=== PATIENT | female | born 1980 | race Caucasian/White ===

== ENCOUNTER 2023-06-14 07:00 | Inpatient (IN) | payer SELFPAY ==
[2023-06-14] VITALS (18 sets, daily range): BP systolic 110–148; BP diastolic 57–81; PULSE 67–85; RESP 14–16; TEMP 36.4–37; O2SAT 93–96; BMI 29.2
[2023-06-14] MEDS: Lactated Ringers 1,000 ML 50 ML IV (08:35)
[2023-06-14] MEDS: Oxytocin 15 Units/NS 250ml 15 UNITS/250 ML IV.SOLN 2 UNITS IV (08:55)
[2023-06-14 08:56] LABS: Absolute Lymphocyte Count 1.24 X10^3/uL (0.83-4.51); Absolute Neutrophil Count 2.9 X10^3/uL (2.0-7.7); Basophil# 0.02 X10^3/uL; Basophil% 0.4 % (0-1); Eosinophil# 0.01 X10^3/uL; Eosinophils% 0.2 % (0-5); Hematocrit 39.5 % (37-47); Hemoglobin 13.2 g/dL (12.0-15.0); Lymphocyte # 1.24 X10^3/ul (0.83-4.51); Lymphocyte % 27.6 % (19-41); Mean Corp Hgb Conc 33.4 g/dL (32-36); Mean Corpuscular Hgb 28.8 pg (27.0-32.0); Mean Corpuscular Volume 86.2 fL (81-99); Mean Platelet Vol. 10.4 fl (6.2-12.0); Monocyte# 0.34 X10^3/uL; Monocyte% 7.6 % (0-10); NRBC Flagged by Analyzer 0 % (0-5); Neutrophil # 2.87 X10^3/uL (2.7-7.7); Neutrophil % 63.8 % (47-70); Platelet Count 205 K/mm3 (150-450); Red Blood Count 4.58 M/mm3 (4.2-5.4); White Blood Count 4.5 K/mm3 (4.4-11.0)
[2023-06-14 09:26] LABS: Syphilis Antibodies Non-reactive
[2023-06-14 09:31] LABS: Bedside Glucose 82 mg/dL (74-106)
[2023-06-14] MEDS: Penicillin G 3,000,000 Units 50 ML 100 UNITS IV (12:55)
[2023-06-14 13:06] LABS: Bedside Glucose 67 mg/dL (74-106)
--- NOTE | 2023-06-14 13:21 | PCM.HP.OB ---
HPI - General General Date of Admission: 06/14/23 Date of Service: 06/14/23 Chief Complaint: induction of labor HPI Narrative SYED GUZMAN, is a 42 F 019 presents at Maternal Data Information Final AZAM: 06/18/23 Gestational age: 39 3/7 PFSH PFS Medical History (Updated 06/14/23 @ 13:[address] Cat Combs MD) DVT (deep venous thrombosis) Gestational diabetes Hepatitis Superficial varicosities Home Medications vit no.95-ferrous fumarate 28 mg-folic acid 800 mcg tablet () 1 tab PO DAILY 06/14/23 [History Last Taken 06/13/23] Allergy/AdvReac Type Severity Reaction Status Date / Time No Known Allergies Allergy Verified 06/14/23 07:40 Surgical History (Updated 06/14/23 @ 09:51 by Tamie Spangler) History of surgery Previous section Social History Smoking Status: Never smoker History Elective abortions Hx Para 9 Spontaneous abortions Hx # Term Pregnancies Ectopic pregnancies Hx # Pregnancies Multiple births # of living children ROS Constitutional Constitutional: Denies fatigue, fever(s) or malaise Eyes Eyes: Denies change in vision ENT HEENT: Denies dizziness or headache(s) Cardiovascular Cardiovascular: Denies chest pain, dyspnea or lightheadedness Respiratory/Chest Respiratory/Chest: Denies cough or dyspnea Gastrointestinal Gastrointestinal: Denies change in bowel habits Genitourinary Genitourinary: Denies burning urination or genital lesions Integumentary Integumentary: Denies rash Neurologic Neurologic: Denies confusion, dizziness, headache(s), numbness or weakness Vital Signs Vital Signs Vital Signs: 06/14/23 07:37 06/14/23 07:37 06/14/23 13:03 Temperature Temperature Source Temporal Pulse Rate 82 Blood Pressure 135/81 H BP Systolic 135 BP Diastolic 81 06/14/23 13:03 Temperature 97.6 F L Temperature Source Pulse Rate Blood Pressure BP Systolic BP Diastolic Weight Weight: 77.2 kg Body Mass Index (BMI) 29.2 Physical Exam Const alert General Appearance: cooperative HEENT normocephalic Resp normal respiratory effort Cardio regular rate GI soft to palpation GI Narrative: soft, moderate distention, fundus firm, appropriately tender. Abdominal bandage clean dry and intact Extremity no calf tenderness General Extremity: edema Skin no wounds Rashes: No rashes noted Psych activity/motor behavior normal Labs Labs Labs: Blood Type A POSITIVE Antibody Screen NEGATIVE Hct 39.5 % (37-47) Hgb 13.2 g/dL (12.0-15.0) Syphilis Total Ab Non-reactive Assessment & Plan (1) Advanced maternal age (AMA), 40 years or greater: PLAN: 50-year-old grand multiparity patient with previous section presents for induction of labor due to age greater than 40. Risk benefits alternatives to induction of labor discussed with the patient, questions were answered to her satisfaction she desires to proceed. We discussed option of epidural, she declines this. Estimated weight is less than 4000 g clinically and pelvis is clinically adequate to expect vaginal delivery. Proceed with Pitocin and artificial rupture of membrane induction. She has a history of a saphenous vein thrombosis. It was not a DVT but it was anticoagulated. This was after her . She has not had any issues after her vaginal deliveries. She did have superficial thrombophlebitis during the . She had a vascular consult during the . She has been wearing compression stockings during the . There is not a strong recommendation to anticoagulate the patient postdelivery. I discussed with the patient after delivery as it would be reasonable to put her on prophylactic doses of Lovenox. If she declines this would at least recommend aspirin 325 mg daily. (2) Failed trial of labor following previous , antepartum: (3) Grand multipara in labor in third trimester: (4) 39 weeks gestation of : (5) GDM, class A1:
[2023-06-14 13:30] LABS: Bedside Glucose 85 mg/dL (74-106)
--- NOTE | 2023-06-14 13:56 | EX.PCM.OBRPT ---
Assessment & Plan (1) 39 weeks gestation of : (2) GDM, class A1: (3) Grand multipara in labor in third trimester: (4) Advanced maternal age (AMA), 40 years or greater: (5) (vaginal after ): Maternal Data Information Final AZAM: 06/18/23 Gestational age: 39 3/7 Vaginal Delivery Maternal Presentation Maternal Presentation: Medically Indicated Induction Type of Induction: Pitocin and Amniotomy Medical Reason for Induction: - (advanced maternal age) Operative Information Date of Procedure: 06/14/23 Pre-Operative Diagnosis: labor Post-Operative Diagnosis: same Surgery / Procedure Performed: Type of Anesthesia: None Special Medications: none Drain: Coyne to straight drain Estimated Blood Loss: 200 Time of Delivery: 13:47 Findings Description of Procedure: A vigorous female infant was delivered CYNDY over an intact perineum. The remainder the was delivered with maternal pushing and gentle traction only in less than 15 seconds. The Pitocin infusion was initiated for active management of the third stage. The cord was clamped and cut after cord pulsations ceased. The infant was attended to by the waiting nursing staff. The placenta was delivered spontaneously and intact. The cervix and vagina were intact. Sponge and needle counts were correct. A vaginal sweep was completed by me. Presentation: CYNDY Amniotic Membrane Rupture Type: Artificial Amniotic Fluid Description: Clear Placental Delivery Description: Spontaneous Placenta Disposition: [facility] Cord Vessel Description: 3 Vessels Cord Entanglement: None Infant A Gender: Female (Jo Ann) (1 minute): 8 (5 minute): 9 Delayed Cord Clamping: Yes Post Vaginal Delivery Medications Given After Delivery: IV Pitocin Episiotomy Description: None Laceration: None Complication Complications: None
[2023-06-14] MEDS: Oxytocin 15 Units/NS 250ml 15 UNITS/250 ML IV.SOLN 83 UNITS IV (14:15)
[2023-06-14 14:42] LABS: Bedside Glucose 87 mg/dL (74-106)
[2023-06-15 03:15] VITALS: BP 108/63; PULSE 72; PULSE 76; RESP 16; TEMP 36.7; O2SAT 98
[2023-06-15 05:42] LABS: Bedside Glucose 79 mg/dL (74-106)
[2023-06-15 07:42] VITALS: BP 103/67; PULSE 76; RESP 16; TEMP 36.7; O2SAT 97
[2023-06-15 07:46] VITALS: BP 103/67; PULSE 74
--- NOTE | 2023-06-15 08:00 | DCINST_ITS ---
Discharge Instructions Diet Discharge Diet: No restrictions Activity Discharge Activity: Return to Normal Activity, May Shower and May Take a Tub Bath May resume sexual activity in: 4-6 weeks Weight Bearing Status: Weight bearing as tolerated Dressing / Incision Call your doctor if you observe: Fever of 101 or Higher, Inability to urinate, Using more than 1 pad per hour, Shortness of breath, Dizziness, Swelling in the ankles, Chest pain, Calf discomfort and Uncontrolled pain Follow Up Care Please Follow Up With: Cat Combs MD When: Within 14 days Test Results: Test results from this visit will be discussed in further detail at your follow- up appointment, if applicable. Discharge Plan Admission Admit Date/Time: 06/14/23 07:00 Primary Reason for Your Visit: Labor and Delivery Attending Provider: Cat Combs Primary Care Provider: Care Physician,Stephenie Primary Discharge Orders/Prescriptions Prescriptions: No Action PNV cmb#95-ferrous fumarate-FA [] 28 mg iron- 800 mcg tablet 1 tab PO DAILY Referrals / Follow Up: Care Physician,No Primary [Primary Care Provider] - Disposition Disposition (needs filled in before D/C Order can be placed): Home, Self Care
--- NOTE | 2023-06-15 08:02 | PCM.PN.OB ---
Subjective Subjective Patient seen at bedside. Feeling good. Denies any pain. without difficulty. Desires discharge home today. Objective Data Objective Data Vital Signs: Vital Signs Temp Pulse Resp BP Pulse Ox O2 Del Method 98.1 F 74 16 103/67 97 Room Air 06/15/23 07:42 06/15/23 07:46 06/15/23 07:42 06/15/23 07:46 06/15/23 07:42 06/15/23 07:42 Oxygen Delivery Method Room Air Weight: 170 lb 3.15 oz Body Mass Index (BMI) 29.2 Intake & Output: Intake and Output for Last 24 Hours 06/13/23 06/14/23 06/15/23 23:59 23:59 23:59 Intake Total 665.0 / 665.0 Output Total 200 / 200 Balance 465.0 / 465.0 Lab / Micro Data 06/14/23 08:35 Labs: Laboratory Results - last 24 hr 06/14/23 08:35: WBC 4.5, RBC 4.58, Hgb 13.2, Hct 39.5, MCV 86.2, MCH 28.8, MCHC 33.4, RDW Std Deviation 50.0 H, RDW Coeff of Lilian 16.0 H, Plt Count 205, MPV 10.4, Immature Gran % (Auto) 0.400, Neut % (Auto) 63.8, Lymph % (Auto) 27.6, Tompkins % (Auto) 7.6, Eos % (Auto) 0.2, Baso % (Auto) 0.4, Absolute Neuts (auto) 2.9, Absolute Lymphs (auto) 1.24, Nucleated RBC % 0, Syphilis Total Ab Non-reactive, Blood Type A POSITIVE, Antibody Screen NEGATIVE 06/14/23 08:48: POC Glucose 82 06/14/23 12:47: POC Glucose 67 L 06/14/23 13:11: POC Glucose 85 06/14/23 14:21: POC Glucose 87 06/15/23 05:22: POC Glucose 79 ROS Eyes Eyes: Denies blurry vision, change in vision or spots in vision ENT HEENT: Denies dizziness or headache(s) Cardiovascular Cardiovascular: Denies abdominal pain, chest pain or dyspnea Respiratory/Chest Respiratory/Chest: Denies cough, dyspnea, shortness of breath at rest or shortness of breath with exertion Gastrointestinal Gastrointestinal: Denies abdominal pain, diarrhea or vomiting Genitourinary Genitourinary: Denies change in urinary stream, difficulty urinating or dysuria Musculoskeletal Musculoskeletal: Reports none Integumentary Integumentary: Denies rash Neurologic Neurologic: Denies dizziness, headache(s), memory loss or weakness Assessment & Plan (1) (vaginal after ): (2) GDM, class A1: (3) Care and examination of lactating mother: PLAN: Plan PPD 1 Routine care Pain control D/C home with follow up in office Discharge instructions provided by me and time spent was <30 minutes
[2023-06-15 14:48] VITALS: BP 123/76; PULSE 78; RESP 16; TEMP 36.6; O2SAT 98
[2023-06-15 14:49] VITALS: BP 123/76; PULSE 78
== END 2023-06-15 15:00 | disposition home or self-care (01) | DRG 807 ==
PROVIDERS: Admitting Provider Obstetrics & Gynecology; Referring Provider Obstetrics & Gynecology; Visit Provider Obstetrics & Gynecology
DX: O34.219 Maternal care for unspecified type scar from previous cesarean delivery (principal); Z37.0 Single live birth; O24.429 Gestational diabetes mellitus in childbirth, unspecified control; Z3A.39 39 weeks gestation of pregnancy
CPT/HCPCS: 59050; 82962; 85025; 86780; 86850; 86900; 86901; 99221; J7120; G0378